=== PATIENT | female | born 1945 ===

== ENCOUNTER 2023-12-23 06:00 | Day surgery (SDC) | payer OTHER ==
[2023-12-21 10:16] LABS: HEMATOCRIT 32.4 % (36.0-45.00); HEMOGLOBIN 10.6 g/dL (12.0-15.00); MEAN CELL VOLUME 88.3 fL (80.00-100.00); MEAN CORPUSCULAR HEMOGLOBIN 28.9 pg (27.00-32.0); MEAN CORPUSCULAR HGB CONC 32.8 g/dl (32.0-36.0); PLATELET COUNT 153 K/uL (150-450); RED BLOOD COUNT 3.66 M/uL (4.00-6.00); RED CELL DISTRIBUTION WIDTH 14.7 % (11.5-14.5)
[2023-12-21 10:18] LABS: PH,URINE 6.5 (5.0-8.0); URINE APPEARANCE Cloudy; URINE BILIRRUBIN Negative (NEGATIVE); URINE BLOOD Large; URINE COLOR Red; URINE GLUCOSE Negative (NEGATIVE); URINE KETONE Negative (NEGATIVE); URINE LEUKOCYTE Small; URINE NITRATE Negative; URINE PROTEIN >=1000 (NEGATIVE); URINE UROBILINOGEN 0.2 E.U./dl
[2023-12-21 10:21] LABS: URINE BACTERIA 289.7 uL (0.0-1933); URINE EPITHELIAL CELLS 4.1 uL (0.0-38.8); URINE WBC 77.3 uL (0.0-23.2)
[2023-12-21 10:34] LABS: INR 1.06; PARTIAL THROMBOPLASTIN TIME 25.6 SECONDS (22.0-34.0); PROTHROMBIN TIME 11.5 SECONDS (9.0-11.5)
[2023-12-21 10:43] LABS: URINE CAST 0.36 uL (0.0-1.40); URINE RBC > 10558.9 uL (0.0-20.8)
[2023-12-21 11:01] VITALS: BP 160/70
[2023-12-21 11:24] LABS: CALCIUM 9.2 mg/dL (8.5-10.1); CREATININE SERUM 2.91 mg/dL (0.55-1.02); GFR 15.59; POTASSIUM 5.55 mEq/L (3.5-5.1)
[~2023-12-23] VITALS: Ht 162.6 cm; Wt 58.5 kg
[~2023-12-23 06:00] MED LIST: AMARYL; CLONOPIN; COZAAR25 MG PO; EVISTA60 MG PO; GLUCOPHAGE XR750 MG PO; LIPITOR40 MG PO; NEURONTIN300 MG PO; NEURONTIN800 MG PO; NOVOLIN N100 UNIT/1; NOVOLIN N100 UNIT/1 IJ; PROTONIX IV40 MG IV; SYNTHROID100 MCG; SYNTHROID100 MCG PO; SYNTHROID112 MCG PO; TOPROL XL100 M1 PO; TOPROL XL100 MG PO; ZANTAC300 MG PO
[2023-12-23] MEDS ORDERED: PHENAZOPYRIDINE HCL 100 MG TABLET PO ONE (07:45)
[2023-12-23] MEDS ORDERED: TAMSULOSIN HCL 0.4 MG CAP PO ONE (07:45)
[2023-12-23] MEDS ORDERED: CHLORHEXIDINE GLUCONATE 120 ML BOTTLE TOP ONE (08:00)
[2023-12-23] MEDS ORDERED: GENTAMICIN SULFATE 40 MG/ML VIAL IV ONE (08:00)
[2023-12-23] MEDS ORDERED: IOVERSOL 320 MG/ML - 50 ML VIAL IV ONE (08:30)
[2023-12-23] MEDS ORDERED: MORPHINE SULFATE 4 MG/ML VIAL IV ONE (10:30)
== END 2023-12-23 14:20 | disposition home or self-care (01) ==
LOC: CIR.AMB 06:00
PROVIDERS: ATTEND Urology
DX: C67.9 Malignant neoplasm of bladder, unspecified (principal); N20.0 Calculus of kidney